=== PATIENT | female | born 1935 | race Caucasian/White ===

== ENCOUNTER 2016-07-16 07:00 | Day surgery (SDC) | payer MEDICARE, OTHER ==
--- NOTE | 2016-07-15 15:26 | HP ---
ADMIT DATE: 07/16/2016 HISTORY OF PRESENT ILLNESS: The patient is a pleasant 81-year-old who is having difficulty with her left hand. She notes numbness in her thumb, index and middle fingers. She says they can become numb virtually any time. She says it is improved at night when she has been wearing a wrist splint, but during the day any time she uses her hand, she notices numbness or clumsiness. The problem has been moderately severe over the last 2 months. She is reporting that activities such as buttoning her shirt are becoming more and more difficult because of her left hand numbness and pain. PHYSICAL EXAMINATION: NEUROSURGERY EXAMINATION: GENERAL APPEARANCE: Alert, pleasant, in no acute distress. HEAD: Normocephalic and atraumatic. NECK AND THYROID: no significant tenderness with palpation of posterior cervical region. SKIN: Warm and dry. MUSCULOSKELETAL: Cervical paraspinal muscle bulk is normal, restricted range of motion of cervical region, normal range of motion of the upper extremities bilaterally. EXTREMITIES: No clubbing, cyanosis, or edema. NEUROLOGIC: Alert and oriented x 3, normal recent and remote memory, strength 5/5 in bilateral upper and lower extremities, sensory was intact to light touch in the upper and lower extremities except for decreased sensation in the distal thumb, index and middle fingers on her left hand, reflexes were present and symmetric in the upper and lower extremities bilaterally, positive Phalen's and negative Tinel's on the left, normal gait. I reviewed an EMG nerve conduction study is consistent with carpal tunnel syndrome on the left. ASSESSMENT: Carpal tunnel syndrome, left upper limb. PLAN: She is significantly bothered with left carpal tunnel syndrome, which is not improved significantly with conservative measures. I discussed with her left median nerve release at the transverse carpal ligament. I spoke about the surgery and the risks involved. She considered her options. She would like to proceed with surgery. We will make the arrangements. RAOUL MATA MD DR: BRYANT/kofi JOB#: [id number] / [id number] MARIE
[~2016-07-16] VITALS: Ht 154.9 cm; Wt 48.5 kg
[~2016-07-16 07:00] MED LIST: ASPI-482 PO; BACITRACIN 50,000 UNIT in IV NORMAL SALINE 500ML BAG 500 ML IRR ONE; CEFAZOLIN 2GM PREMIX 50 ML IV ONE; CHOL2000 PO; CYAN500T PO; ESTR1TAB15 PO; FENTANYL PF 100 MCG/2 ML VIAL. IV PRN; FOLI1TAB16 PO; HYDR-2868 PO; HYDR12.58 PO; HYDR200T PO; HYDROMORPHONE 2 MG/ML VIAL. IV PRN; IV RINGERS,LACTATED 1000ML 1,000 ML IV SCH; L. A1CAP14 PO; LIDOCAINE 1% 1 ML SYRINGE. ID PRN; LIDOCAINE 1% PF 30 ML VIAL. ONE; METH2.5T PO; MORPHINE SULFATE 2 MG/ML DISP.SYRIN. IV PRN; NAPR220C4 PO; ONDANSETRON PF 4 MG/2 ML VIAL. IV PRN; PROCHLORPERAZINE 10 MG/2 ML VIAL. IV PRN; RANI150T6 PO; VALS320T2 PO; VITA400T6 PO
[2016-07-16] MEDS ORDERED: LIDOCAINE 2% 20 ML VIAL. ONE (07:58)
[2016-07-16] MEDS ORDERED: MIDAZOLAM HCL 2 MG/2 ML VIAL. ONE (07:58)
[2016-07-16] MEDS ORDERED: 0.9 % SODIUM CHLORIDE 50 ML VIAL. IJ ONE (09:01)
[2016-07-16] MEDS ORDERED: PROPOFOL 20 ML IV ONE ×2 (09:01→09:30)
--- NOTE | 2016-07-16 09:52 | DISCH ---
DISCHARGE INSTRUCTIONS Condition on Discharge Condition on Discharge: Stable Activity After Discharge Activity Instructions for Disc: Activity as tolerated, Avoid exertion Other activity instructions: no driving today, ok to use fingers Bathing Instructions: Shower-keep dressing dry Lifting Instructions after Dis: No heavy lifting, No pulling or pushing Diet after Discharge Additional Diet Restrictions: resume home diet Wound Incision Care Wound/Incision Care: Ice to area for comfort Other wound/incision instructi: may remove outer dressing in 24 hrs, leave inner dressing on Contacting the DRRuth after DC Call your doctor for: Concerns you may have Follow-Up Follow up with: Dr. Mata in 2 weeks [phone] RAOUL MATA MD Jul 16, 2016 09:52
[2016-07-16] MEDS ORDERED: HYDR-971 PO (09:55)
[2016-07-16 10:06] VITALS: BP 138/52
--- NOTE | 2016-07-22 23:02 | OP ---
DATE OF SURGERY: 07/16/2016 PREOPERATIVE DIAGNOSES: Left carpal tunnel syndrome. POSTOPERATIVE DIAGNOSIS: Left carpal tunnel syndrome. OPERATION PERFORMED: Left median nerve release at the transverse carpal ligament. The operation was done with sergio block anesthesia. SURGEON: Duane Mata M.D. OPERATIVE INDICATIONS: The patient is a very pleasant 81-year-old woman who developed intractable signs and symptoms of left carpal tunnel syndrome with positive Phalen's on the left side and positive EMG nerve conduction study. She failed to improve with conservative measures including wearing wrist splint. I recommended a carpal tunnel release. I spoke with her about the surgery and the risks involved and she wished to go ahead. DESCRIPTION OF PROCEDURE: Following sergio block anesthesia, the left forearm and hand were then prepped and draped in the standard fashion. ESDRAS hose and AV impulse boots have been applied for DVT prophylaxis. Ancef 2 grams were given less than 1 hour prior to initiation of the surgery. An incision was made along the medial thenar crease. I dissected down and gently opened the palmaris fascia and gently cut down and worked just to the ulnar side of the thenar musculature. Sharply under direct visualization, I cut through the transverse carpal ligament holding tension with the retractor and then visualized the median nerve without difficulty. I then thinned the ligament over the ulnar side of the nerve proximally and distally sharply and then used small tenotomy scissors to open distally into the palm where I reached the fatty tissue and then proximally into the wrist where using a same retractor under direct visualization, I transected the ligament. At this point, then I irrigated copiously. I closed the wound in layers with absorbable suture and the skin was closed with 4-0 Nurolon in a vertical mattress manner. The surgery went well. The patient was taken to recovery room with normal strength in left hand. I was quite pleased with the surgery. DUANE MATA MD DR: BRYANT/kofi JOB#: [id number] / [id number] MARIE
== END 2016-07-16 10:45 | disposition home or self-care (01) ==
LOC: SURG 07:00
PROVIDERS: ATTEND Neurological Surgery
DX: G56.02 Carpal tunnel syndrome, left upper limb (principal); I10 Essential (primary) hypertension; M19.90 Unspecified osteoarthritis, unspecified site; Z72.89 Other problems related to lifestyle; Z87.442 Personal history of urinary calculi; Z87.39 Personal history of other diseases of the musculoskeletal system and connective tissue; Z90.710 Acquired absence of both cervix and uterus
CPT/HCPCS: 64721; J0690; J2250; J2704; J3490; J7040

== ENCOUNTER 2020-08-08 17:34 | Emergency (ER) | payer MEDICARE, OTHER ==
[~2020-08-08] VITALS: Ht 160 cm; Wt 58.0 kg
[~2020-08-08 17:34] MED LIST changes: -BACITRACIN 50,000 UNIT in IV NORMAL SALINE 500ML BAG 500 ML IRR ONE; -CEFAZOLIN 2GM PREMIX 50 ML IV ONE; -CYAN500T PO; +CYAN500T7 PO; +ESTR-113 PO; -ESTR1TAB15 PO; -FENTANYL PF 100 MCG/2 ML VIAL. IV PRN; +HYDR-3164 PO; -HYDR200T PO; +HYDR200T71 PO; -HYDROMORPHONE 2 MG/ML VIAL. IV PRN; -IV RINGERS,LACTATED 1000ML 1,000 ML IV SCH; -LIDOCAINE 1% 1 ML SYRINGE. ID PRN; -LIDOCAINE 1% PF 30 ML VIAL. ONE; -MORPHINE SULFATE 2 MG/ML DISP.SYRIN. IV PRN; -ONDANSETRON PF 4 MG/2 ML VIAL. IV PRN; -PROCHLORPERAZINE 10 MG/2 ML VIAL. IV PRN; +RANI-376 PO; -RANI150T6 PO
[2020-08-08] MEDS ORDERED: NITROGLYCERIN SUBLINGUAL 0.4 MG BOTTLE OF 25. SL PRN (18:00)
[2020-08-08] MEDS ORDERED: MORPHINE SULFATE 4 MG/ML VIAL. IV/SQ PRN (18:00)
[2020-08-08 18:06] LABS: BASO # 0.1 x10^3/uL (0.0-0.2); BASO % 1 % (0-3); EOS # 0.2 x10^3/uL (0.0-0.7); EOS % 3 % (0-3); HEMATOCRIT 34.5 % (36.0-47.0); HEMOGLOBIN 11.6 g/dL (12.0-15.5); LYMPH % 25 % (24-48); MEAN CORPUSCULAR HEMOGLOBIN 33 pg (25-35); MEAN CORPUSCULAR HGB CONC 34 g/dL (31-37); MEAN CORPUSCULAR VOLUME 97 fL (79-100); MONO % 12 % (0-9); NEUT # 4.7 x10^3/uL (1.8-7.7); NEUT % 59 % (31-73); PLATELET COUNT 277 x10^3/uL (140-400); RED BLOOD COUNT 3.57 x10^6/uL (3.50-5.40); RED CELL DISTRIBUTION WIDTH 14.5 % (11.5-14.5); WHITE BLOOD COUNT 7.9 x10^3/uL (4.0-11.0)
[2020-08-08 18:13] LABS: PROTHROMBIN TIME PATIENT 11.9 SEC (11.7-14.0)
[2020-08-08 18:17] LABS: D-DIMER 1.09 ug/mlFEU (0.00-0.50)
[2020-08-08 18:20] LABS: CALCIUM 8.6 mg/dL (8.5-10.1); CREATININE 1.1 mg/dL (0.6-1.0); GFR 47.3; POTASSIUM 4.5 mmol/L (3.5-5.1)
[2020-08-08 18:26] LABS: ALBUMIN 3.5 g/dL (3.4-5.0); ALBUMIN/GLOBULIN RATIO 1.1 (1.0-1.7); MAGNESIUM 1.5 mg/dL (1.8-2.4); TOTAL BILIRUBIN 0.4 mg/dL (0.2-1.0); TOTAL PROTEIN 6.8 g/dL (6.4-8.2)
--- NOTE | 2020-08-08 18:35 | RAD ---
XR CHEST 1V 08/08/2020 6:22 PM INDICATION: Chest pain COMPARISON: 08/21/2015 TECHNIQUE: Portable frontal view of the chest is provided. FINDINGS: The cardiomediastinal silhouette is within normal limits. 14 mm nodular opacity identified in the rig ht suprahilar region. There are no significant pleural effusions. There is no pulmonary vascular congestion. No pneumothora x. No suspicious osseous abnormality. IMPRESSION: 14 mm nodular opacity identified in the right suprahilar region. Further characterization with CT sukhi st with contrast is recommended. Electronically signed by: Paulina Patel MD (08/08/2020 6:32 PM) CAREY
--- NOTE | 2020-08-08 18:47 | EKG ---
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 : 1935 Requested By: MARCELO BECERRIL Order Number: [id number] Reading MD: Measurements Intervals [place] Rate: 59 P: 39 MI: 166 QRS: 3 QRSD: 136 T: 138 QT: 412 QTc: 412 Interpretive Statements SINUS RHYTHM ATRIAL PREMATURE COMPLEX(ES) LEFT BUNDLE BRANCH BLOCK ABNORMAL ECG RI6.02 No previous ECG available for comparison
[2020-08-08] MEDS ORDERED: IOHEXOL 350 MG/ML 100 ML VIAL. IV ONE (19:00)
[2020-08-08 19:19] VITALS: BP 145/64
--- NOTE | 2020-08-08 21:14 | PHYS DOC ---
Past Medical History Past Medical History: Anxiety, Arthritis, Hypertension Past Surgical History: Cholecystectomy, Other Additional Past Surgical Histo: PARTIAL COLECTOMY Smoking Status: Never Smoker Alcohol Use: None General Adult EDM: Chief Complaint: CHEST PAIN HPI: HPI: Patient is a 85 year old female patient with history of anxiety, hypertension, who presents the ED today complaining of intermittent sharp mild bilateral chest pain, back pain, symptoms began 1-1/2 hours after taking Lomotil for chronic diarrhea. Patient said this is her first time taking Lomotil patient denies anything specifically that exacerbated or relieved her symptoms. She states she thought it was acid reflux. She states she does not want to be in the ED and regrets coming. She states her pain is gone right now. Review of Systems: Review of Systems: Constitutional: Denies fever or chills. [] Eyes: Denies change in visual acuity. [] HENT: Denies nasal congestion or sore throat. [] Respiratory: Denies cough or shortness of breath. [] Cardiovascular: Reports chest pain GI: Reports chronic diarrhea. Denies abdominal pain, nausea, vomiting, bloody stools : Denies dysuria. [] Musculoskeletal: Denies back pain or joint pain. [] Integument: Denies rash. [] Neurologic: Denies headache, focal weakness or sensory changes. [] Psychiatric: Denies depression or anxiety. [] Heart Score: C/O Chest Pain: Yes HEART Score for Chest Pain: HEART Score for Chest Pain Response (Comments) Value History Slighlty/Non-Suspicious 0 ECG Normal 0 Age > 65 2 Risk Factors 1 or 2 Risk Factors 1 Troponin >1-<3x Normal Limit 1 Total 4 Risk Factors: Risk Factors: DM, Current or recent (<one month) smoker, HTN, HLP, family history of CAD, obesity. Risk Scores: Score 0 - 3: 2.5% MACE over next 6 weeks - Discharge Home Score 4 - 6: 20.3% MACE over next 6 weeks - Admit for Clinical Observation Score 7 - 10: 72.7% MACE over next 6 weeks - Early Invasive Strategies Current Medications: Current Medications Medications (Trade) Dose Ordered Sig/Lexus Start Time Stop Time Status Last Admin Dose Admin Iohexol (Omnipaque 350 Mg/ml) 75 ml 1X ONCE 08/08/20 19:00 08/08/20 19:04 DC Morphine Sulfate (Morphine Sulfate) 4 mg PRN Q15MIN PRN 08/08/20 18:00 08/08/20 20:42 DC Nitroglycerin (Nitrostat) 0.4 mg PRN Q5MIN PRN 08/08/20 18:00 08/08/20 20:42 DC Allergies: Allergies: Allergies Coded Allergies Type Severity Reaction Last Updated Verified No Known Drug Allergies 07/16/16 No Physical Exam: PE: Constitutional: Well developed, well nourished, no acute distress, non-toxic appearance. [] HENT: Normocephalic, atraumatic, bilateral external ears normal, oropharynx mois t, no oral exudates, nose normal. [] Eyes: PERRLA, EOMI, conjunctiva normal, no discharge. [] Neck: Normal range of motion, no tenderness, supple, no stridor. [] Cardiovascular:Heart rate regular rhythm, no murmur [] Lungs & Thorax: Bilateral breath sounds clear to auscultation [] Abdomen: Bowel sounds normal, soft, no tenderness, no masses, no pulsatile masses. [] Skin: Warm, dry, no erythema, no rash. [] Back: No tenderness, no CVA tenderness. [] Extremities: No tenderness, no cyanosis, no clubbing, ROM intact, no edema. [] Neurologic: Alert and oriented X 3, normal motor function, normal sensory function, no focal deficits noted. [] Psychologic: Affect normal, judgement normal, mood normal. [] Current Patient Data: Labs: Laboratory Tests Test 08/08/20 17:49 White Blood Count 7.9 x10^3/uL (4.0-11.0) Red Blood Count 3.57 x10^6/uL (3.50-5.40) Hemoglobin 11.6 g/dL (12.0-15.5) L Hematocrit 34.5 % (36.0-47.0) L Mean Corpuscular Volume 97 fL (79-100) Mean Corpuscular Hemoglobin 33 pg (25-35) Mean Corpuscular Hemoglobin Concent 34 g/dL (31-37) Red Cell Distribution Width 14.5 % (11.5-14.5) Platelet Count 277 x10^3/uL (140-400) Neutrophils (%) (Auto) 59 % (31-73) Lymphocytes (%) (Auto) 25 % (24-48) Monocytes (%) (Auto) 12 % (0-9) H Eosinophils (%) (Auto) 3 % (0-3) Basophils (%) (Auto) 1 % (0-3) Neutrophils # (Auto) 4.7 x10^3/uL (1.8-7.7) Lymphocytes # (Auto) 2.0 x10^3/uL (1.0-4.8) Monocytes # (Auto) 1.0 x10^3/uL (0.0-1.1) Eosinophils # (Auto) 0.2 x10^3/uL (0.0-0.7) Basophils # (Auto) 0.1 x10^3/uL (0.0-0.2) Prothrombin Time 11.9 SEC (11.7-14.0) Prothrombin Time INR 0.9 (0.8-1.1) D-Dimer (Nelly) 1.09 ug/mlFEU (0.00-0.50) H Sodium Level 133 mmol/L (136-145) L Potassium Level 4.5 mmol/L (3.5-5.1) Chloride Level 97 mmol/L (98-107) L Carbon Dioxide Level 21 mmol/L (21-32) Anion Gap 15 (6-14) H Blood Urea Nitrogen 26 mg/dL (7-20) H Creatinine 1.1 mg/dL (0.6-1.0) H Estimated GFR (Cockcroft-Gault) 47.3 BUN/Creatinine Ratio 24 (6-20) H Glucose Level 99 mg/dL (70-99) Calcium Level 8.6 mg/dL (8.5-10.1) Magnesium Level 1.5 mg/dL (1.8-2.4) L Total Bilirubin 0.4 mg/dL (0.2-1.0) Aspartate Amino Transferase (AST) 30 U/L (15-37) Alanine Aminotransferase (ALT) 25 U/L (14-59) Alkaline Phosphatase 126 U/L (46-116) H Troponin I Quantitative < 0.017 ng/mL (0.000-0.055) ON-Bhp-M-Type Natriuretic Peptide 530 pg/mL (0-449) H Total Protein 6.8 g/dL (6.4-8.2) Albumin 3.5 g/dL (3.4-5.0) Albumin/Globulin Ratio 1.1 (1.0-1.7) Thyroid Stimulating Hormone (TSH) 4.525 uIU/mL (0.358-3.74) H Laboratory Tests 08/08/20 17:49 Laboratory Tests 08/08/20 17:49 Vital Signs: Vital Signs Date Time Temp Pulse Resp B/P (MAP) Pulse Ox O2 Delivery O2 Flow Rate FiO2 08/08/20 19:19 60 16 145/64 (91) 99 Room Air 08/08/20 17:35 98.0 98.0 EKG: EK Interpreted by Dr. Lizama sinus LBBB HR 59 no STEMI[] Radiology/Procedures: Radiology/Procedures: []PROCEDURE: PORTABLE CHEST 1V XR CHEST 1V 08/08/2020 6:22 PM INDICATION: Chest pain COMPARISON: 08/21/2015 TECHNIQUE: Portable frontal view of the chest is provided. FINDINGS: The cardiomediastinal silhouette is within normal limits. 14 mm nodular opacity identified in the right suprahilar region. There are no significant pleural effusions. There is no pulmonary vascular congestion. No pneumothorax. No suspicious osseous abnormality. IMPRESSION: 14 mm nodular opacity identified in the right suprahilar region. Further characterization with CT chest with contrast is recommended. Electronically signed by: Kj Patel MD (08/08/2020 6:32 PM) [facility] DICTATED and SIGNED BY: KJ PATEL MD DATE: 08/08/20 [id number] 0 Course & Med Decision Making: Course & Med Decision Making Pertinent Labs and Imaging studies reviewed. (See chart for details) This is a 85-year-old female patient presented to the ED today with complaints of anterior chest pain, back pain, symptoms began 1-1/2 hours after taking Lomotil for chronic diarrhea. EKG is negative, troponin is normal, D-dimer 1.09, patient also noted for 14 mm opacity identified in the right suprahilar region. Further characterization with CT chest with contrast is recommended. CTA chest was ordered, patient refused, she stated she wants to leave the ED she feels she does not need to be in the ED. I spoke to patient and the daughter, expressed the need to stay in the ED and complete her work-up and the risk of leaving AMA including and disability. Patient proceeded to sign out AMA. She is alert oriented x4 and able to make her own decisions Marva Disclaimer: Marva Disclaimer: This electronic medical record was generated, in whole or in part, using a voice recognition dictation system. Departure Departure Impression: Primary Impression: Left against medical advice Additional Impressions: Chest pain Qualified Codes: R07.9 - Chest pain, unspecified Elevated d-dimer Disposition: 07 AMA/ELOPED/LWBS Condition: STABLE MARCELO BECERRIL [employer] Aug 08, 2020 21:13
== END 2020-08-08 20:29 | disposition left against medical advice (07) ==
LOC: ER 17:34
DX: R07.89 Other chest pain (principal); R19.7 Diarrhea, unspecified; M54.5 Low back pain; R79.1 Abnormal coagulation profile; F41.9 Anxiety disorder, unspecified; M19.90 Unspecified osteoarthritis, unspecified site; I10 Essential (primary) hypertension; Z90.49 Acquired absence of other specified parts of digestive tract; Z98.890 Other specified postprocedural states
CPT/HCPCS: 36415; 71045; 80053; 83735; 83880; 84443; 84484; 85025; 85379; 85610; 93005; 99285